=== PATIENT | female | born 1975 | race Caucasian/White ===

== ENCOUNTER → 2018-12-21 | Emergency (ER) | payer MEDICAID ==
[~2018-12-21] VITALS: Ht 160 cm; Wt 98.7 kg
[~2018-12-21] MED LIST: ALBU8HFA PO; AZIT250T PO; BENZ1TAB7 PO; CLIN-96 PO; HALO5TAB PO; HYDR-3965 PO; HYDR-4383 PO; HYDR50CA5 PO; HYDROcodone/acetaminophen 10/325mg tab PO ONE; OMEP20TA23 PO; ONDA4TAB6 PO; PHEN-824 PO; VENL150C58 PO; ondansetron 4mg rapidly disintigrating tab PO ONE
[2018-12-21 23:52] VITALS: BP 135/65
== END | disposition home or self-care (01) ==
LOC: ER 19:57
DX: S43.91XA Sprain of unspecified parts of right shoulder girdle, initial encounter (principal); M75.21 Bicipital tendinitis, right shoulder; M75.101 Unspecified rotator cuff tear or rupture of right shoulder, not specified as traumatic; J44.9 Chronic obstructive pulmonary disease, unspecified; G89.29 Other chronic pain; F15.90 Other stimulant use, unspecified, uncomplicated; Z86.19 Personal history of other infectious and parasitic diseases; Z86.14 Personal history of Methicillin resistant Staphylococcus aureus infection; Z90.710 Acquired absence of both cervix and uterus; Z90.49 Acquired absence of other specified parts of digestive tract; Z98.890 Other specified postprocedural states; Z88.2 Allergy status to sulfonamides; Z88.1 Allergy status to other antibiotic agents; Z88.8 Allergy status to other drugs, medicaments and biological substances; Z79.899 Other long term (current) drug therapy; X50.1XXA Overexertion from prolonged static or awkward postures, initial encounter; Y93.89 Activity, other specified; Y92.89 Other specified places as the place of occurrence of the external cause; Y99.8 Other external cause status
CPT/HCPCS: 29105; 99283

== ENCOUNTER 2019-01-23 14:20 | Emergency (ER) | payer MEDICAID ==
[~2019-01-23] VITALS: Ht 160 cm; Wt 98.0 kg
[~2019-01-23 14:20] MED LIST changes: -HYDR-3965 PO; -HYDROcodone/acetaminophen 10/325mg tab PO ONE; -ondansetron 4mg rapidly disintigrating tab PO ONE
[2019-01-23 14:29] VITALS: BP 128/74
[2019-01-23] MEDS ORDERED: HYDR-4353 PO (15:13)
== END 2019-01-23 15:40 | disposition home or self-care (01) ==
LOC: ER 14:20
DX: M25.511 Pain in right shoulder (principal); J44.9 Chronic obstructive pulmonary disease, unspecified; G89.29 Other chronic pain; F15.90 Other stimulant use, unspecified, uncomplicated; Z86.19 Personal history of other infectious and parasitic diseases; Z90.49 Acquired absence of other specified parts of digestive tract; Z90.710 Acquired absence of both cervix and uterus; Z98.890 Other specified postprocedural states; Z85.89 Personal history of malignant neoplasm of other organs and systems; Z88.2 Allergy status to sulfonamides; Z88.1 Allergy status to other antibiotic agents; Z88.8 Allergy status to other drugs, medicaments and biological substances; Z79.899 Other long term (current) drug therapy
CPT/HCPCS: 99283

== ENCOUNTER 2019-03-14 03:05 | Emergency (ER) | payer MEDICAID ==
[~2019-03-14] VITALS: Ht 160 cm; Wt 97.0 kg
[2019-03-14 03:08] VITALS: BP 112/67
== END 2019-03-14 06:56 | disposition left against medical advice (07) ==
LOC: ER 03:06
DX: G43.909 Migraine, unspecified, not intractable, without status migrainosus (principal); Z53.21 Procedure and treatment not carried out due to patient leaving prior to being seen by health care provider

== ENCOUNTER 2019-05-15 12:38 | Emergency (ER) | payer MEDICAID ==
[~2019-05-15] VITALS: Ht 160 cm; Wt 101.8 kg
[2019-05-15] MEDS ORDERED: ketorolac trometh. 30mg/ml inj. IV ONE (13:55)
[2019-05-15] MEDS ORDERED: normal saline 1000ml 1,000 ML IV ONE (13:55)
[2019-05-15] MEDS ORDERED: acetaminophen 325mg tablet PO ONE (13:55)
[2019-05-15] MEDS ORDERED: metoclopramide 5 mg/ml inj IV ONE (13:55)
[2019-05-15] MEDS ORDERED: HYDROcodone/acetaminophen 5mg/325mg tablet PO ONE (13:55)
[2019-05-15 15:12] VITALS: BP 145/86
== END 2019-05-15 15:16 | disposition home or self-care (01) ==
LOC: ER 12:39
DX: G43.909 Migraine, unspecified, not intractable, without status migrainosus (principal); R11.10 Vomiting, unspecified; J44.9 Chronic obstructive pulmonary disease, unspecified; G89.29 Other chronic pain; Z86.14 Personal history of Methicillin resistant Staphylococcus aureus infection; Z86.19 Personal history of other infectious and parasitic diseases; F31.9 Bipolar disorder, unspecified; F20.9 Schizophrenia, unspecified; F15.90 Other stimulant use, unspecified, uncomplicated; Z90.49 Acquired absence of other specified parts of digestive tract; Z90.710 Acquired absence of both cervix and uterus; Z98.890 Other specified postprocedural states; Z85.89 Personal history of malignant neoplasm of other organs and systems; Z88.1 Allergy status to other antibiotic agents; Z88.2 Allergy status to sulfonamides; Z88.8 Allergy status to other drugs, medicaments and biological substances; Z79.899 Other long term (current) drug therapy
CPT/HCPCS: 96361; 96374; 96375; 99283; J1885; J2765; J7030

== ENCOUNTER 2019-07-01 10:24 | Emergency (ER) | payer MEDICAID ==
[~2019-07-01] VITALS: Ht 160 cm; Wt 104.0 kg
[2019-07-01 11:25] LABS: BASOPHILS # (AUTO) 0.1 X10'3 (0-0.2); BASOPHILS % (AUTO) 1.3 % (0-1); EOSINOPHILS # (AUTO) 0.1 X10'3 (0-0.9); EOSINOPHILS % (AUTO) 1.4 % (0-6); HEMATOCRIT 39.6 % (35.0-45.0); HEMOGLOBIN 13.2 g/dl (12.0-16.0); LYMPHOCYTES % (AUTO) 20.7 % (21-51); MEAN CORPUSCULAR HEMOGLOBIN 26.8 PG (27.0-31.0); MEAN CORPUSCULAR HGB CONC 33.5 g/dL (33.0-36.5); MEAN CORPUSCULAR VOLUME 79.9 FL (78-98); MEAN PLATELET VOLUME 7.1 FL (7.4-10.4); MONOCYTES # (AUTO) 0.8 X10'3 (0-0.9); MONOCYTES % (AUTO) 8.6 % (2-12); NEUTROPHILS # (AUTO) 6.6 X10'3 (1.8-7.7); PLATELET COUNT 347 X10'3 (140-440); RED BLOOD COUNT 4.95 X10'6 (4.20-5.60); WHITE BLOOD COUNT 9.7 X10'3 (4.5-11.0)
[2019-07-01 11:37] LABS: ALANINE AMINOTRANSFERASE 25 U/L (12-78); ALBUMIN/GLOBULIN RATIO 0.9 (1.1-1.5); ALKALINE PHOSPHATASE 90 IU/L (46-116); ANION GAP 10 (8-16); ASPARTATE AMINO TRANSFERASE 15 U/L (10-37); BILIRUBIN,TOTAL 0.2 MG/DL (0.1-1.0); BLOOD UREA NITROGEN 13 MG/DL (7-18); CALCIUM 9.3 MG/DL (8.5-10.1); CHLORIDE 101 MMOL/L (99-107); CREATININE 1.08 MG/DL (0.40-0.90); GLUCOSE 99 MG/DL (70-104); SODIUM 139 MMOL/L (135-145); TOTAL CARBON DIOXIDE 27.8 MMOL/L (24-32); TOTAL PROTEIN 8.7 G/DL (6.4-8.2); eGFR 55 ML/MIN
[2019-07-01 12:40] LABS: CLARITY,URINE CLEAR (Clear); COLOR,URINE YELLOW (Yellow); GLUCOSE, URINE NEGATIVE (Neg); KETONES,URINE NEGATIVE (Neg); LEUKOCYTE ESTERASE ,URINE NEGATIVE (Neg); NITRITES, URINE NEGATIVE (Neg); OCCULT BLOOD,URINE NEGATIVE (Neg); PROTEIN,URINE NEGATIVE (Neg); UROBILINOGEN,URINE 0.2 E.U/dL (0.2-1.0)
[2019-07-01 12:43] LABS: URINE HCG NEGATIVE (NEG)
[2019-07-01 12:44] LABS: UA COLLECTION TYPE CLN CATCH MIDSTREAM
[2019-07-01] MEDS ORDERED: normal saline 1000ML IV soln IVB ONE (12:45)
[2019-07-01] MEDS ORDERED: ketorolac tromethamine 15mg/ml inj. IV ONE (12:45)
[2019-07-01] MEDS ORDERED: ondansetron/PF 4mg/2ml inj IV ONE (12:45)
[2019-07-01] MEDS ORDERED: ONDA4TAB6 PO (13:03)
[2019-07-01] MEDS ORDERED: morphine 4 MG/ML inj SYRINge IV ONE (14:05)
[2019-07-01 14:24] VITALS: BP 136/93
== END 2019-07-01 14:26 | disposition home or self-care (01) ==
LOC: ER 10:25
DX: R10.12 Left upper quadrant pain (principal); E86.0 Dehydration; F15.10 Other stimulant abuse, uncomplicated; G43.909 Migraine, unspecified, not intractable, without status migrainosus; J44.9 Chronic obstructive pulmonary disease, unspecified; G89.29 Other chronic pain; F31.9 Bipolar disorder, unspecified; F20.9 Schizophrenia, unspecified; F17.200 Nicotine dependence, unspecified, uncomplicated; Z90.710 Acquired absence of both cervix and uterus; Z90.49 Acquired absence of other specified parts of digestive tract; Z86.14 Personal history of Methicillin resistant Staphylococcus aureus infection; Z98.890 Other specified postprocedural states; Z88.1 Allergy status to other antibiotic agents; Z88.8 Allergy status to other drugs, medicaments and biological substances; Z79.2 Long term (current) use of antibiotics; Z79.899 Other long term (current) drug therapy
CPT/HCPCS: 36415; 74176; 80053; 81003; 81025; 85025; 85610; 96361; 96374; 96375; 99284; J1885; J2270; J2405; J7030

== ENCOUNTER 2020-01-21 16:14 | Emergency (ER) | payer MEDICAID ==
[~2020-01-21] VITALS: Ht 160 cm; Wt 105.5 kg
[~2020-01-21 16:14] MED LIST changes: -CLIN-96 PO; +CLIN-97 PO
[2020-01-21 17:52] LABS: CLARITY,URINE SLIGHTLY CLOUDY (Clear); COLOR,URINE YELLOW (Yellow); GLUCOSE, URINE NEGATIVE (Neg); KETONES,URINE NEGATIVE (Neg); LEUKOCYTE ESTERASE ,URINE NEGATIVE (Neg); NITRITES, URINE NEGATIVE (Neg); OCCULT BLOOD,URINE NEGATIVE (Neg); PH,URINE 5.5 (4.8-8.0); PROTEIN,URINE NEGATIVE (Neg); UROBILINOGEN,URINE 0.2 E.U/dL (0.2-1.0)
[2020-01-21 17:57] LABS: BACTERIA,URINE 1+ /HPF (Neg); MUCUS STRANDS MODERATE /LPF (Neg); RBC,URINE 0-2 /HPF (0-2); SQUAMOUS EPITHELIAL CELL,UR MANY /LPF (FEW); UA COLLECTION TYPE CLN CATCH MIDSTREAM; WBC,URINE 0-4 /HPF (0-4)
[2020-01-21 17:58] LABS: CAL OXALATE CRYSTALS 1+ /HPF (NEGATIVE)
[2020-01-21 18:10] LABS: BASOPHILS # (AUTO) 0.1 X10'3 (0-0.2); EOSINOPHILS # (AUTO) 0.2 X10'3 (0-0.9); EOSINOPHILS % (AUTO) 3.3 % (0-6); HEMATOCRIT 34.4 % (35.0-45.0); HEMOGLOBIN 11.4 g/dl (12.0-16.0); LYMPHOCYTES # (AUTO) 2.3 X10'3 (1.1-4.8); MEAN CORPUSCULAR HEMOGLOBIN 25.4 PG (27.0-31.0); MEAN CORPUSCULAR HGB CONC 33.2 g/dL (33.0-36.5); MEAN CORPUSCULAR VOLUME 76.6 FL (78-98); MEAN PLATELET VOLUME 7.4 FL (7.4-10.4); MONOCYTES % (AUTO) 14.3 % (2-12); NEUTROPHILS # (AUTO) 3.4 X10'3 (1.8-7.7); NEUTROPHILS % (AUTO) 48.4 % (42-75); PLATELET COUNT 269 X10'3 (140-440); RED CELL DISTRIBUTION WIDTH 15.1 % (11.5-14.5); WHITE BLOOD COUNT 6.9 X10'3 (4.5-11.0)
[2020-01-21 18:26] LABS: ALANINE AMINOTRANSFERASE 29 U/L (12-78); ALBUMIN 3.2 G/DL (3.4-5.0); ALBUMIN/GLOBULIN RATIO 0.8 (1.1-1.5); ALKALINE PHOSPHATASE 60 IU/L (46-116); ANION GAP 4 (8-16); ASPARTATE AMINO TRANSFERASE 28 U/L (10-37); BILIRUBIN,TOTAL 0.2 MG/DL (0.1-1.0); BLOOD UREA NITROGEN 13 MG/DL (7-18); BUN/CREATININE RATIO 13.3 (6.6-38.0); CALCIUM 8.8 MG/DL (8.5-10.1); CHLORIDE 103 MMOL/L (99-107); CREATININE 0.98 MG/DL (0.40-0.90); GLUCOSE 96 MG/DL (70-104); POTASSIUM 3.7 MMOL/L (3.5-5.1); SODIUM 136 MMOL/L (135-145); TOTAL CARBON DIOXIDE 28.9 MMOL/L (24-32); TOTAL PROTEIN 7.1 G/DL (6.4-8.2); eGFR 61 ML/MIN
[2020-01-21 18:34] LABS: MAGNESIUM 2.1 MG/DL (1.5-2.4)
[2020-01-21 19:21] VITALS: BP 108/51
== END 2020-01-21 20:15 | disposition home or self-care (01) ==
LOC: ER 16:15
DX: M54.9 Dorsalgia, unspecified (principal); R60.1 Generalized edema; R05 Cough; R10.84 Generalized abdominal pain; M79.89 Other specified soft tissue disorders; G43.909 Migraine, unspecified, not intractable, without status migrainosus; J44.9 Chronic obstructive pulmonary disease, unspecified; G89.29 Other chronic pain; F31.9 Bipolar disorder, unspecified; F20.9 Schizophrenia, unspecified; F15.90 Other stimulant use, unspecified, uncomplicated; Z87.01 Personal history of pneumonia (recurrent); Z86.19 Personal history of other infectious and parasitic diseases; Z86.14 Personal history of Methicillin resistant Staphylococcus aureus infection; Z85.41 Personal history of malignant neoplasm of cervix uteri; Z90.89 Acquired absence of other organs; Z90.710 Acquired absence of both cervix and uterus; Z98.890 Other specified postprocedural states; Z88.1 Allergy status to other antibiotic agents; Z88.2 Allergy status to sulfonamides; Z88.8 Allergy status to other drugs, medicaments and biological substances; Z79.2 Long term (current) use of antibiotics; Z79.899 Other long term (current) drug therapy
CPT/HCPCS: 36415; 71045; 80053; 81001; 83735; 83880; 85025; 85610; 99284

== ENCOUNTER 2020-06-09 01:20 | Emergency (ER) | payer MEDICAID ==
[~2020-06-09] VITALS: Ht 160 cm; Wt 70.9 kg
[2020-06-09] MEDS ORDERED: normal saline 1000ml 1,000 ML IV ONE (02:10)
[2020-06-09] MEDS ORDERED: proCHLORperazine 10 MG/2 ml inj IV ONE (02:10)
[2020-06-09] MEDS ORDERED: ketorolac trometh. 30mg/ml inj. IV ONE (02:10)
[2020-06-09] MEDS ORDERED: diphenhydrAMINE 50 mg/ml inj IV ONE (02:10)
[2020-06-09] MEDS ORDERED: SUMAtriptan succ. 6 MG/0.5ml vial SQ ONE (02:10)
[2020-06-09] MEDS ORDERED: HYDROcodone/acetaminophen 10/325mg tab PO ONE (03:55)
[2020-06-09] MEDS ORDERED: metoclopramide 5 mg/ml inj IV ONE (03:55)
[2020-06-09] MEDS ORDERED: morphine 10mg/ml inj. IV ONE (04:45)
[2020-06-09 05:51] VITALS: BP 109/73
== END 2020-06-09 05:52 | disposition home or self-care (01) ==
LOC: ER 01:20
DX: G43.909 Migraine, unspecified, not intractable, without status migrainosus (principal); J44.9 Chronic obstructive pulmonary disease, unspecified; K21.9 Gastro-esophageal reflux disease without esophagitis; G89.29 Other chronic pain; F31.9 Bipolar disorder, unspecified; F20.9 Schizophrenia, unspecified; F15.90 Other stimulant use, unspecified, uncomplicated; Z86.19 Personal history of other infectious and parasitic diseases; Z86.14 Personal history of Methicillin resistant Staphylococcus aureus infection; Z90.49 Acquired absence of other specified parts of digestive tract; Z90.710 Acquired absence of both cervix and uterus; Z98.890 Other specified postprocedural states; Z88.1 Allergy status to other antibiotic agents; Z88.2 Allergy status to sulfonamides; Z79.2 Long term (current) use of antibiotics; Z79.899 Other long term (current) drug therapy
CPT/HCPCS: 36415; 84484; 93005; 96361; 96372; 96374; 96375; 99285; J0780; J1200; J1885; J2270; J2765; J7030; J3030

== ENCOUNTER 2020-10-01 17:29 | Emergency (ER) | payer MEDICAID ==
[~2020-10-01] VITALS: Ht 160 cm; Wt 63.6 kg
[2020-10-01 17:39] VITALS: BP 119/84
[2020-10-01 18:09] LABS: CLARITY,URINE TURBID (Clear); COLOR,URINE YELLOW (Yellow); GLUCOSE, URINE NEGATIVE (Neg); KETONES,URINE NEGATIVE (Neg); LEUKOCYTE ESTERASE ,URINE MODERATE (Neg); NITRITES, URINE NEGATIVE (Neg); OCCULT BLOOD,URINE TRACE-LYSED (Neg); PH,URINE 6.5 (4.8-8.0); PROTEIN,URINE TRACE mg/dl (Neg)
[2020-10-01 18:10] LABS: URINE HCG NEGATIVE (NEG)
[2020-10-01 18:13] LABS: UA COLLECTION TYPE CLN CATCH MIDSTREAM
[2020-10-01 18:15] LABS: MUCUS STRANDS MANY /LPF (Neg); SQUAMOUS EPITHELIAL CELL,UR MANY /LPF (FEW)
[2020-10-01 18:16] LABS: RBC,URINE 0-2 /HPF (0-2); WBC,URINE TNTC /HPF (0-4)
[2020-10-01 18:17] LABS: BACTERIA,URINE 2+ /HPF (Neg)
[2020-10-01] MEDS ORDERED: CEPH250T PO (18:29)
[2020-10-01] MEDS ORDERED: ibuprofen tablet 400 MG TABLET PO ONE (18:40)
[2020-10-01] MEDS ORDERED: ibuprofen 200mg tablet PO ONE (18:45)
== END 2020-10-01 18:50 | disposition home or self-care (01) ==
LOC: ER 17:30
DX: N39.0 Urinary tract infection, site not specified (principal); G43.909 Migraine, unspecified, not intractable, without status migrainosus; J44.9 Chronic obstructive pulmonary disease, unspecified; G89.29 Other chronic pain; F15.90 Other stimulant use, unspecified, uncomplicated; Z87.01 Personal history of pneumonia (recurrent); Z86.14 Personal history of Methicillin resistant Staphylococcus aureus infection; Z85.41 Personal history of malignant neoplasm of cervix uteri; Z86.19 Personal history of other infectious and parasitic diseases; Z90.49 Acquired absence of other specified parts of digestive tract; Z90.710 Acquired absence of both cervix and uterus; Z98.890 Other specified postprocedural states; Z88.1 Allergy status to other antibiotic agents; Z88.2 Allergy status to sulfonamides; Z88.8 Allergy status to other drugs, medicaments and biological substances; Z79.2 Long term (current) use of antibiotics; Z79.899 Other long term (current) drug therapy
CPT/HCPCS: 81001; 81025; 99283

== ENCOUNTER 2022-10-12 12:03 | Emergency (ER) | payer MEDICAID ==
[~2022-10-12] VITALS: Ht 154.9 cm; Wt 75.0 kg
[2022-10-12 12:06] VITALS: BP 141/80
[2022-10-12] MEDS ORDERED: ketorolac trometh. 30mg/ml inj. IM ONE (13:50)
== END 2022-10-12 16:14 | disposition home or self-care (01) ==
LOC: ER 12:03
DX: M25.572 Pain in left ankle and joints of left foot (principal); J45.909 Unspecified asthma, uncomplicated; G43.909 Migraine, unspecified, not intractable, without status migrainosus; K21.9 Gastro-esophageal reflux disease without esophagitis; G89.29 Other chronic pain; M54.9 Dorsalgia, unspecified; F31.9 Bipolar disorder, unspecified; F20.9 Schizophrenia, unspecified; F15.10 Other stimulant abuse, uncomplicated; Z87.81 Personal history of (healed) traumatic fracture; Z98.890 Other specified postprocedural states; Z90.49 Acquired absence of other specified parts of digestive tract; Z88.2 Allergy status to sulfonamides; Z88.1 Allergy status to other antibiotic agents; Z88.8 Allergy status to other drugs, medicaments and biological substances
CPT/HCPCS: 73610; 93005; 96372; 99283; J1885

== ENCOUNTER 2023-07-21 13:30 | Emergency (ER) | payer MEDICAID ==
[~2023-07-21] VITALS: Ht 154.9 cm; Wt 90.0 kg
[~2023-07-21 13:30] MED LIST changes: -BENZ1TAB7 PO; +BENZ1TAB78 PO
[2023-07-21 13:37] VITALS: BP 158/99; PULSE 89; TEMP 97.8; O2SAT 98
[2023-07-21] MEDS ORDERED: predniSONE 20 mg tablet PO ONE (16:50)
[2023-07-21] MEDS ORDERED: ketorolac tromethamine 15mg/ml inj. IM ONE (16:50)
[2023-07-21] MEDS ORDERED: PRED20TA PO ×3 (17:26→17:48)
[2023-07-21 17:50] VITALS: RESP 18
--- NOTE | 2023-07-21 18:57 | NUR ---
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
== END 2023-07-21 18:00 | disposition home or self-care (01) ==
LOC: ER 13:30
DX: G56.03 Carpal tunnel syndrome, bilateral upper limbs (principal); M79.672 Pain in left foot
CPT/HCPCS: 29125; 73610; 96372; 99284; J1885; J7512; L4360

== ENCOUNTER 2023-11-30 06:57 | Day surgery (SDC) | payer MEDICAID ==
[2023-11-26 13:19] LABS: BASOPHILS % (AUTO) 0.7 % (0-1); EOSINOPHILS # (AUTO) 0.2 X10'3 (0-0.9); MEAN CORPUSCULAR HEMOGLOBIN 25.8 PG (27.0-31.0); MEAN CORPUSCULAR HGB CONC 32.8 g/dL (33.0-36.5); MEAN CORPUSCULAR VOLUME 78.7 FL (78-98); MEAN PLATELET VOLUME 7.1 FL (7.4-10.4); MONOCYTES # (AUTO) 0.5 X10'3 (0-0.9); MONOCYTES % (AUTO) 8.9 % (2-12); NEUTROPHILS # (AUTO) 3.3 X10'3 (1.8-7.7); NEUTROPHILS % (AUTO) 54.4 % (42-75); PRE OP HEMATOCRIT 39.3 % (35.0-45.0); PRE OP HEMOGLOBIN 12.9 g/dL (12.0-16.0); PRE OP PLATELET COUNT 303 X10'3 (140-440); PRE OP WHITE BLOOD COUNT 6.1 10'3 (4.8-10.8)
[2023-11-26 13:29] LABS: ALBUMIN 3.6 G/DL (3.4-5.0); ALBUMIN/GLOBULIN RATIO 0.8 (1.1-1.5); ALKALINE PHOSPHATASE 96 IU/L (46-116); BLOOD UREA NITROGEN 14 MG/DL (7-18); BUN/CREATININE RATIO 17.7 (10.0-20.0); CALCIUM 8.7 MG/DL (8.5-10.1); CHLORIDE 103 MMOL/L (99-107); CREATININE 0.79 MG/DL (0.40-0.90); PRE OP ALT 13 U/L (30-65); PRE OP ANION GAP 11 (8-16); PRE OP AST 16 U/L (10-37); PRE OP BILIRUB, TOTAL 0.2 MG/DL (0.0-1.0); PRE OP GLUCOSE 100 MG/DL (70-104); PRE OP POTASSIUM 4.2 MMOL/L (3.4-5.1); PRE OP SODIUM 140 MMOL/L (135-145); TOTAL PROTEIN 8.1 G/DL (6.4-8.2); eGFR 77 ML/MIN
[~2023-11-30] VITALS: Ht 154.9 cm; Wt 79.4 kg
[2023-11-30] MEDS: cefazolin 2gm/D5W 100mL 100 ML IV ONE (05:30)
[~2023-11-30 06:57] MED LIST changes: -ALBU8HFA PO; -AZIT250T PO; -BENZ1TAB78 PO; -CLIN-97 PO; -HALO5TAB PO; +HYDR-3968 PO; -HYDR-4383 PO; -HYDR50CA5 PO; +IBUP-1985 PO; +METH-797 PO; +MIRT45TA83 PO; -OMEP20TA23 PO; -ONDA4TAB6 PO; -PHEN-824 PO; -VENL150C58 PO
[2023-11-30 07:03] VITALS: BP 123/84; PULSE 72; RESP 16; TEMP 98.4; O2SAT 96
[2023-11-30] MEDS ORDERED: LIDOcaine 1% (10mg/ml)w/preservative inj. 20ml MDV ONE (07:29)
[2023-11-30] MEDS ORDERED: BUPIVAcaine/PF 2.5mg/ml (0.25%) 10ml vial ONE (07:30)
[2023-11-30] MEDS ORDERED: FAMO20TA8 PO (07:45)
[2023-11-30] MEDS ORDERED: OMEP20CA16 PO (07:45)
[2023-11-30] MEDS: famotidine 20mg tablet PO ONE (08:02)
[2023-11-30] MEDS: ringers solution, lacted 1,000 ML IV SCH (08:02)
[2023-11-30] MEDS ORDERED: fentaNYL/PF 50MCG/1 ML 2ML syringe ONE (09:35)
[2023-11-30] MEDS ORDERED: MIDAZolam 1 MG/ML 5ML VIAL ONE (09:35)
[2023-11-30] MEDS ORDERED: LIDOcaine 2% (20mg/ml) 5ml vial ONE ×2 (09:42→10:01)
[2023-11-30] MEDS ORDERED: ketamine 50mg/5ml syringe ONE (10:02)
[2023-11-30] MEDS ORDERED: LIDOcaine 1%/PF 5ML 10 MG/ML VIAL ONE (10:04)
[2023-11-30] MEDS ORDERED: propofol inj 20 ML IV ONE (10:04)
[2023-11-30] MEDS: LIDOcaine 2% (20mg/ml) 5ml vial SQ ONE (10:10)
[2023-11-30] MEDS: BUPIVAcaine/PF 2.5mg/ml (0.25%) 10ml vial IJ ONE (10:13)
[2023-11-30 10:23] VITALS: BP 131/101; PULSE 78; RESP 16; O2SAT 96
[2023-11-30 10:30] VITALS: BP 121/78; PULSE 72; RESP 18; O2SAT 94
[2023-11-30 10:40] VITALS: BP 109/83; PULSE 66; RESP 17; O2SAT 94
[2023-11-30 10:50] VITALS: BP 128/89; PULSE 59; RESP 17; O2SAT 94
[2023-11-30 11:00] VITALS: BP 141/115; PULSE 73; RESP 13
== END 2023-11-30 12:43 | disposition home or self-care (01) ==
LOC: PAS 06:57
PROVIDERS: ATTEND Orthopaedic Surgery Hand Surgery
DX: G56.03 Carpal tunnel syndrome, bilateral upper limbs (principal); G47.30 Sleep apnea, unspecified; F41.9 Anxiety disorder, unspecified; F32.A Depression, unspecified; F17.210 Nicotine dependence, cigarettes, uncomplicated; F15.91 Other stimulant use, unspecified, in remission; F11.11 Opioid abuse, in remission; Z86.19 Personal history of other infectious and parasitic diseases; Z79.899 Other long term (current) drug therapy; Z98.890 Other specified postprocedural states; Z90.710 Acquired absence of both cervix and uterus
CPT/HCPCS: 29848; 36415; 80053; 82948; 85025; 93005; J0690; J2250; J2704; J3010; J3490; J7030; J7120; Z7506; Z7512; A4215; A6449; A7000

== ENCOUNTER 2024-03-02 20:15 | Emergency (ER) | payer MEDICAID ==
[~2024-03-02 20:15] MED LIST changes: +FAMO20TA8 PO; +OMEP20CA16 PO
== END 2024-03-02 22:32 | disposition left against medical advice (07) ==
LOC: ER 20:16
DX: M25.562 Pain in left knee (principal); Z53.21 Procedure and treatment not carried out due to patient leaving prior to being seen by health care provider

== ENCOUNTER 2024-03-03 08:15 | Outpatient (CLI) | payer MEDICAID | END 2024-03-03 23:59 | disposition home or self-care (01) | LOC: RAD 08:15 | PROVIDERS: ATTEND Nurse Practitioner Family | DX: Z12.2 Encounter for screening for malignant neoplasm of respiratory organs (principal); I51.7 Cardiomegaly; M47.814 Spondylosis without myelopathy or radiculopathy, thoracic region; F17.210 Nicotine dependence, cigarettes, uncomplicated | CPT/HCPCS: 71271 ==

== ENCOUNTER 2024-08-05 16:35 | Outpatient (CLI) | payer MEDICAID | END 2024-08-05 23:59 | disposition home or self-care (01) | LOC: RAD 16:35 | PROVIDERS: ATTEND Physician Assistant | DX: F11.20 Opioid dependence, uncomplicated (principal); J44.9 Chronic obstructive pulmonary disease, unspecified | CPT/HCPCS: 93005 ==

== ENCOUNTER 2025-02-13 09:41 | Outpatient (CLI) | payer MEDICAID ==
--- NOTE | 2025-02-13 11:01 | RADIOLOGY REPORT ---
CLINICAL HISTORY: EFFUSION, RIGHT ANKLE TECHNIQUE: Multisequence multiplanar MRI images of the right ankle were obtained without contrast. COMPARISON: No prior imaging of the right ankle was available for comparison at the time of dictation . FINDINGS: BONES/JOINTS: No evidence of acute fracture. Subchondral marrow edema of the distal aspect of the cub oid near its articulation with the 4th metatarsal base, may be sequelae of arthritic changes, with mi lder subchondral edema in the 4th metatarsal base. Moderate arthritic changes of the calcaneocuboid j oint with joint space narrowing and subchondral cystic change. Osteochondral lesion in the medial pavan ar dome with overlying chondral deformity / defect and associated subchondral edema, measuring up to 4 mm in greatest dimension. No significant joint effusion. TENDONS: Tibialis posterior, flexor digitorum longus, and flexor hallucis longus tendons are intact. Mild tenosynovitis of the peroneus longus and brevis tendons as they course adjacent to the lateral m alleolus. Tibialis anterior, extensor hallucis longus, and extensor digitorum longus tendons are inta ct. Mild Achilles tendinosis with mild peritendinitis. No tear. LIGAMENTS: Edema of the deep fibers of the deltoid ligament complex, likely sequela of sprain. Small ossicle along the course of the deep fibers of the deltoid ligament complex measuring up to 4 mm, yolette ears to be a focal osseous spur of the medial aspect of the talus. Mild edema along the course of the superomedial component of the spring ligament complex, likely sequela of sprain. Sprain of the anter ior talofibular ligament with edema and mild indistinctness of the fibers along its entire course. Mi ld sprain of the posterior talofibular ligament. Syndesmotic ligaments are intact. Mild sprain of the calcaneofibular ligament. PLANTAR FASCIA: Minimal edema adjacent to the calcaneal attachment of the plantar fascia. SINUS TARSI: Edema in the sinus tarsi with indistinct appearance of the ligaments, consistent with si nus tarsi syndrome in the appropriate clinical setting. MUSCLES: Unremarkable. No significant atrophy. OTHER: Motion artifact limits evaluation. IMPRESSION: 1. Motion limited study. 2. Stage I osteochondral lesion of the medial talar dome. 3. Medial and lateral ligamentous sprains as detailed above. 4. Mild peroneal tenosynovitis. 5. Mild Achilles tendinosis and peritendinitis. 6. Findings consistent with sinus tarsi syndrome. 7. Minimal edema adjacent to the calcaneal attachment of the plantar fascia. 8. Arthritic changes as described above.
== END 2025-02-13 23:59 | disposition home or self-care (01) ==
LOC: MRI02 09:41
PROVIDERS: ATTEND Podiatrist Foot & Ankle Surgery
DX: S93.491A Sprain of other ligament of right ankle, initial encounter (principal); M25.471 Effusion, right ankle; R60.0 Localized edema; X58.XXXA Exposure to other specified factors, initial encounter; Y93.89 Activity, other specified; Y92.89 Other specified places as the place of occurrence of the external cause; Y99.8 Other external cause status
CPT/HCPCS: 73721

== ENCOUNTER 2025-02-19 16:47 | Emergency (ER) | payer MEDICAID ==
[~2025-02-19] VITALS: Ht 154.9 cm; Wt 80.0 kg
[2025-02-19 16:51] VITALS: BP 123/68; PULSE 76; O2SAT 98
--- NOTE | 2025-02-19 18:06 | Physician Documentation ---
History of Present Illness ~ Chief Complaint: Buttock Pain Stated Complaint: FELL AND HURT BUTTOCK Time Seen by MD: 17:38 Primary Medical Doctor: [facility] Patient is seen today with complaints of falling earlier this morning and hurting her left buttocks/left hip. Patient states she is unable to lift up her left leg because of pain. Patient states she is ambulatory. Patient denies any chest pain or shortness of breath or abdominal pain or nausea, vomiting, diarrhea. Patient has no new or other concern or complaint at this time. Medication Reconciliation Allergies: Coded Allergies: ciprofloxacin (Verified Allergy, Severe, 10/01/20) ANAPHYLAXIS bupropion (Unverified Allergy, Unknown, 10/12/22) sulfamethoxazole (Verified Allergy, Unknown, 01/21/20) tetracycline (Verified Allergy, Unknown, 01/21/20) trimethoprim (Verified Allergy, Unknown, 01/21/20) Scheduled Famotidine (Famotidine), 1 TAB PO BID, (Reported) Ibuprofen (Ibuprofen), 1 TAB PO TID, (Reported) Mirtazapine (Remeron), 1 TAB PO HS, (Reported) Omeprazole (Omeprazole), 1 CAP PO DAILY, (Reported) Scheduled PRN Hydrocodone Bit/Acetaminophen (Hydrocodon-Acetaminoph 7.5-325), 1 TAB PO BID PRN for severe pain, (Reported) Methocarbamol (Methocarbamol), 1-2 TAB PO BID PRN for muscle spasms, (Reported) Past Medical History Past Medical History: Migraine, COPD, Pneumonia, GERD, Hepatitis B, UTI, Chronic Back Pain, MRSA Abscess, Cervical Cancer/Dysplasia, Bipolar, Schizoph candice Past Surgical History: appendectomy, hysterectomy, orthopedic surgeries, other Other Past Surgical History: Left elbow reconstruction Alcohol Use: None Drug Use: methamphetamine Lives with: Family Lives In: Home Occupation: employed Review of Systems Constitutional: Denies: chills, fever, weakness Eyes: Denies: pain, blurred vision ENT: Denies: ear pain, nose pain, throat pain, mouth pain Respiratory: Denies: cough, shortness of breath Cardiovascular: Denies: chest pain, palpitations Gastrointestinal: Denies: abdominal pain, nausea, vomiting Genitourinary: Denies: burning, dysuria Female Genitalia: Denies: vaginal discharge, pelvic pain Neurological: Denies: headache, dizziness Musculoskeletal: Denies: pain, swelling Integumentary: Denies: rash, lesions Allergic/Immunologic: Denies: hives, itching Hematologic/Lymphatic: Denies: no symptoms reported Psychiatric: Denies: depression, anxiety Physical Exam Physical Exam Vital Signs: Temperature: 97.1, Source: Temporal, Heart Rate: 76, Respiratory R ate: 18, BP: 123/68, Pulse Oximetry: 98, Weight: 80.000 Oxygen Flow Rate: 0 Physical Exam General: Awake and Alert, no acute distress. HEENT: Conjunctiva pink, Sclera clear, Mucus Membranes moist. Neck: Supple without masses and tenderness. Resp: Unlabored. Lungs clear to auscultation bilaterally. Heart: Regular Rate and rhythm, normal S1 and S2 without murmur, rub or gallop. Musculoskeletal: Patient on exam has significant tenderness to palpation patient of the left buttocks. Patient is neurovascularly intact distally. Motor function intact distally. Extremities: No cyanosis,clubbing or edema. Skin: Warm and Dry. Progress Results/Orders Results/Orders Orders - RISA DASH PAC Hip,Bi,Cmplt(Ap Pelvis) (02/19/25 18:14) Completed Orders - RISA DASH PAC Hip,Bi,Cmplt(Ap Pelvis) (02/19/25 18:14) Ketorolac Trometh 30mg/Ml Vial (Toradol (02/19/25 18:00) Medications Received in ER Medications (Trade) Dose Ordered Sig/Tanesha Route PRN Reason Start Time Stop Time Status Last Admin Dose Admin (Toradol inj. 30mg/ml) 30 mg ONCE STAT IM 02/19/25 18:00 02/19/25 18:08 DC 02/19/25 18:40 30 MG Vital Signs 02/19/25 02/19/25 16:51 18:40 Temp 97.1 Pulse 76 Resp 18 14 B/P (MAP) 123/68 Pulse Ox 98 O2 Flow Rate 0 EKG/XRAY/CT/US/VASC/MRI Bone/Soft Tissue X-Ray (Ext.) : Additional Comment X-ray of bilateral hips and pelvis interpreted by myself today showed no sign of acute fracture, bones in anatomic alignment, no osteolytic or blastic lesions. Medical Decision Making Findings Patient is seen today with complaints of falling earlier this morning and hurting her left buttocks/left hip. Patient states she is unable to lift up her left leg because of pain. Patient states she is ambulatory. Patient denies any chest pain or shortness of breath or abdominal pain or nausea, vomiting, diarrhea. Patient has no new or other concern or complaint at this time. Patient did have x-rays taken of bilateral hips and pelvis that were unremarkable. Patient given Toradol shot 30 mg IM in the ED today. Prescription of ibuprofen and Tylenol sent to patient pharmacy to be taken as directed. Patient will advance activity level as tolerated. Departure Disposition: 01 HOME / SELF CARE / HOMELESS Impression: Primary Impression: Contusion, buttock Qualified Codes: S30.0XXA - Contusion of lower back and pelvis, initial encounter Condition: Improved Discharge Instructions: Contusion, [id number] Additional Instructions: Patient did have x-rays taken of bilateral hips and pelvis that were unremarkable. Patient given Toradol shot 30 mg IM in the ED today. Prescription of ibuprofen and Tylenol sent to patient pharmacy to be taken as directed. Patient will advance activity level as tolerated. Referrals: NO PRIMARY CARE PROVIDER (PCP) Prescriptions Acetaminophen (Tylenol Extra Strength) 500 Mg Tablet 2 TAB PO Q6H PRN PRN for pain or fever for 7 Days, #56 TAB Prov: RISA DASH 02/19/25 Ibuprofen (Ibuprofen) 800 Mg Tablet 1 TAB PO Q8H for pain for 10 Days, #30 TAB 0 Refills Prov: RISA DASH 02/19/25 Signature Scribe Signature: No scribe Attestation: No scribe RISA DASH February 19, 2025 18:06
[2025-02-19 18:40] VITALS: RESP 14
[2025-02-19] MEDS: ketorolac trometh 30MG/ML vial 30 MG/ML VIAL IM STA (18:40)
[2025-02-19] MEDS ORDERED: ACET-1025 PO (19:49)
[2025-02-19] MEDS ORDERED: IBUP-1986 PO (19:49)
[2025-02-19 20:34] VITALS: TEMP 97.1
--- NOTE | 2025-02-19 21:20 | RADIOLOGY REPORT ---
Clinical History hip pain BILAT Comparison None Technique: 3 images Without Contrast CAROLE MEZA, [id number] FINDINGS: Osseous structures are anatomically aligned, with no evidence of acute fracture, dislocation or sublu xation. Degenerative disease of lower lumbar spine is identified. Soft tissue structures are grossly unremarkable. IMPRESSION: No evidence of acute osseous injury. Degenerative disc disease of lower lumbar spine. This report was electronically signed by Parveen Garrett MD on 02/19/2025 9:17:32 PM.
== END 2025-02-19 20:36 | disposition home or self-care (01) ==
LOC: ER 16:48
DX: S30.0XXA Contusion of lower back and pelvis, initial encounter (principal); F20.9 Schizophrenia, unspecified; F31.9 Bipolar disorder, unspecified; J44.9 Chronic obstructive pulmonary disease, unspecified; Z85.41 Personal history of malignant neoplasm of cervix uteri; Z88.1 Allergy status to other antibiotic agents; Z88.2 Allergy status to sulfonamides; Z88.8 Allergy status to other drugs, medicaments and biological substances; Z90.49 Acquired absence of other specified parts of digestive tract; Z90.710 Acquired absence of both cervix and uterus; W19.XXXA Unspecified fall, initial encounter; Y93.89 Activity, other specified; Y92.89 Other specified places as the place of occurrence of the external cause; Y99.8 Other external cause status
CPT/HCPCS: 73521; 96372; 99284; J1885